=== PATIENT | female | born 1950 | race Caucasian/White ===

== ENCOUNTER 2021-05-07 08:51 | Day surgery (SDC) | payer MEDICARE ==
[~2021-05-07 08:51] MED LIST: Ak-Dilate OPHTHALMIC*** 1.065 ML, Cyclogyl 1% OPHTH SOL 5 ML 1.065 ML, GATIFLOXACIN 0.5... OP ONE; BETADINE 5% OPHTHALMIC 30 ML OP ONE; Lactated Ringers 1,000 ML IV SCH; NON-FORMULARY ITEM OP ONE; TETRACAINE 0.5% STERI-UNIT SOL OP ONE; cefUROXime sodium 0.005 GM in Sodium Chloride Flush 30 ML*** 0.5 ML IJ SCH
[2021-05-07] MEDS ORDERED: LIDOCAINE HCL 1% 50 MG/5 ML VL PF IJ ONE (08:52)
[2021-05-07] MEDS ORDERED: Epinephrine Preservative Free 1 MG/ML IJ ONE (08:52)
[2021-05-07] MEDS ORDERED: Zofran 4 MG/2 ML VIAL IV PRN (09:00)
[2021-05-07] MEDS ORDERED: ACETAZOLAMIDE 250 MG TABLET PO ONE (09:00)
[2021-05-07] MEDS ORDERED: Lactated Ringers 1,000 ML IV ONE (09:50)
[2021-05-07] MEDS ORDERED: SUBLIMAZE 100 MCG/2 ML ONE (11:44)
[2021-05-07] MEDS ORDERED: DIPRIVAN 200 MG/20 ML IV ONE (11:44)
[2021-05-07] MEDS ORDERED: ROBINUL ONE (11:45)
[2021-05-07] MEDS ORDERED: Versed 2 MG/2 ML Injection ONE (11:45)
[2021-05-07] MEDS ORDERED: Xylocaine 1% Vial 30 ML PF IJ ONE (11:48)
[2021-05-07] MEDS ORDERED: APRESOLINE 20 MG/ML INJ IV ONE (13:25)
[2021-05-07] MEDS ORDERED: APRESOLINE 20 MG/ML INJ ONE (13:31)
[2021-05-07 14:06] VITALS: BP 157/79; PULSE 80; O2SAT 99
== END 2021-05-07 14:06 | disposition home or self-care (01) ==
LOC: SDC 08:51
PROVIDERS: ATTEND Ophthalmology
DX: H25.812 Combined forms of age-related cataract, left eye (principal); Z79.899 Other long term (current) drug therapy
CPT/HCPCS: C1780; J0171; J0360; J2001; J2250; J2704; J3010; A9270-GY

== ENCOUNTER 2021-06-04 09:51 | Day surgery (SDC) | payer MEDICARE ==
[~2021-06-04 09:51] MED LIST changes: +ACETAZOLAMIDE 250 MG TABLET PO ONE; +Zofran 4 MG/2 ML VIAL IV PRN; +cefUROXime sodium 0.005 GM in Sodium Chloride Flush 30 ML*** 0.5 ML IJ ONE; -cefUROXime sodium 0.005 GM in Sodium Chloride Flush 30 ML*** 0.5 ML IJ SCH
[2021-06-04] MEDS ORDERED: LIDOCAINE HCL 1% 50 MG/5 ML VL PF IJ ONE (09:52)
[2021-06-04] MEDS ORDERED: Epinephrine Preservative Free 1 MG/ML IJ ONE (09:52)
[2021-06-04] MEDS ORDERED: Lactated Ringers 1,000 ML IV ONE (09:59)
[2021-06-04] MEDS ORDERED: Versed 2 MG/2 ML Injection ONE ×2 (12:15→12:17)
== END 2021-06-04 13:15 | disposition home or self-care (01) ==
LOC: SDC 09:51
PROVIDERS: ATTEND Ophthalmology
DX: H25.811 Combined forms of age-related cataract, right eye (principal); Z72.0 Tobacco use; Z96.1 Presence of intraocular lens
CPT/HCPCS: C1780; J0171; J2001; J2250; A9270-GY